=== PATIENT | male | born 1965 | race Caucasian/White ===

== ENCOUNTER 2021-12-08 16:16 | Emergency (ER) | payer MEDICAID, OTHER ==
[~2021-12-08] VITALS: Ht 182.9 cm; Wt 81.8 kg
[2021-12-08 18:10] VITALS: BP 136/91
[2021-12-08] MEDS ORDERED: CEPH-558 PO (18:17)
[2021-12-08] MEDS ORDERED: SULF-261 PO (18:18)
== END 2021-12-08 18:38 | disposition home or self-care (01) ==
LOC: EMS 16:16
DX: L03.113 Cellulitis of right upper limb (principal); F17.210 Nicotine dependence, cigarettes, uncomplicated; F12.90 Cannabis use, unspecified, uncomplicated; W57.XXXA Bitten or stung by nonvenomous insect and other nonvenomous arthropods, initial encounter; Y93.89 Activity, other specified; Y92.89 Other specified places as the place of occurrence of the external cause; Y99.8 Other external cause status
CPT/HCPCS: 99283; Z7502